=== PATIENT | male | born 1940 | race Hispanic/Latino ===

== ENCOUNTER 2020-10-05 18:51 | Observation (INO) | payer OTHER ==
[2020-10-05 20:53] LABS: Absolute Lymphocytes (CBC) 0.8 K/uL (0.7-4.9); Basophils % 0.6 % (0-1.3); Hematocrit 47.4 % (39.6-49.0); Lymphocytes % 10.8 % (15.3-44.8); MPV 9.1 fL (7.6-11.3); RBC Red Blood Cell Count 5.11 M/uL (4.33-5.43)
[2020-10-05 20:54] LABS: Protime INR 1.08
[2020-10-05 21:07] LABS: ALT/SGPT 253 U/L (12-78); AST/SGOT 250 U/L (15-37); Albumin 3.3 g/dL (3.4-5.0); Alkaline Phosphatase 62 U/L (45-117); BUN Blood Urea Nitrogen 25 mg/dL (7-18); Bicarbonate 24 mmol/L (21-32); Bilirubin Direct 0.6 mg/dL (0-0.2); Bilirubin Total 1.1 mg/dL (0.2-1.0); Glucose Level 244 mg/dL (74-106); Magnesium 2.5 mg/dL (1.8-2.4); NT PRO-BNP 36 pg/mL (<450); Potassium 4.7 mmol/L (3.5-5.1); Protein, Total 8.2 g/dL (6.4-8.2); Sodium Level 137 mmol/L (136-145); Troponin (Emerg Dept Use Only) < 0.02 ng/mL (0.0-0.045)
[2020-10-05] MEDS ORDERED: dexAMETHasone 10 MG/ML VIAL ONE (21:47)
[2020-10-05] MEDS ORDERED: ENOXAPARIN 30 MG/0.3 ML SQ ONE (23:06)
[2020-10-05] MEDS ORDERED: ENOXAPARIN 40 MG/0.4 ML SQ ONE (23:07)
[2020-10-05] MEDS ORDERED: NA CHLORIDE 0.9% 500 ML ONE (23:55)
--- NOTE | 2020-10-05 23:55 | EDPHYS ---
Physician Documentation [facility] Name: Surinder Silva Age: 79 yrs Sex: Male : 1940 Arrival Date: 10/05/2020 Time: 18:54 Bed 19 Private MD: ED Physician Geoffrey Robles HPI: 10/05 20:53 This 79 yrs old Male presents to ER via EMS with complaints of Fall Injury. jmm 20:53 Onset: The symptoms/episode began/occurred acutely, at an unknown time. Associated [facility] injuries: The patient sustained no obvious injury. This is a 79 year old male with a history of DM, that presents to the ED with no complaints of pain or shortness of breath. Patient recently diagnosed with COVID. Family states the patient had collapsed and was found on the floor. Patient has no recollection of the event. . 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 - Social history:: Smoking status: . ROS: 20:53 Constitutional: Negative for fever, chills, and weight loss, Cardiovascular: Negative jmm for chest pain, palpitations, and edema, Respiratory: Negative for shortness of breath, cough, wheezing, and pleuritic chest pain. 20:53 Neuro: Positive for syncope. 20:53 All other systems are negative. Exam: 20:53 Constitutional: This is a well developed, well nourished patient who is awake, alert, jmm and in no acute distress. Head/Face: atraumatic. Eyes: EOMI, no conjunctival erythema appreciated 20:53 ENT: Moist Mucus Membranes Neck: Trachea midline, Supple Chest/axilla: Normal chest wall appearance and motion. Cardiovascular: Regular rate and rhythm. No edema appreciated Respiratory: Normal respirations, no respiratory distress appreciated Abdomen/GI: Non distended, soft Back: Normal ROM Skin: General appearance color normal MS/ Extremity: Moves all extremities, no obvious deformities appreciated, no edema noted to the lower extremities 20:53 Neuro: Orientation: is normal, Mentation: is normal, Memory: is normal. 20:53 Psych: Behavior/mood is pleasant, cooperative. Vital Signs: 18:54 BP 144 / 73; Pulse 89; Resp 19; Temp 99.6(O); Pulse Ox 95% on R/A; Pain 0/10; tw2 19:00 BP 144 / 73; Pulse 88; Resp 30; Pulse Ox 93% on R/A; jb4 20:00 BP 148 / 65; Pulse 88; Resp 33; Pulse Ox 93% on R/A; jb4 21:10 Resp 30; Pulse Ox 96% on 2.5 lpm NC; jp3 22:50 Weight 74.84 kg (R); Height 5 ft. 2 in. (157.48 cm); jb4 23:00 BP 146 / 84; Pulse 89; Resp 20; Pulse Ox 94% on 2 lpm NC; jb4 10/06 00:00 BP 130 / 71; Pulse 75; Resp 28; Pulse Ox 95% on 2 lpm NC; jb4 10/05 22:50 Body Mass Index 30.18 (74.84 kg, 157.48 cm) jb4 MDM: 10/05 20:03 Patient medically screened. [facility] 23:49 Data reviewed: vital signs, nurses notes. Counseling: I had a detailed discussion with [facility] the patient and/or guardian regarding: the historical points, exam findings, and any diagnostic results supporting the discharge/admit diagnosis, lab results, radiology results, the need for further work-up and treatment in the hospital. ED course: I discussed the patient with Dr. Mildred HERRING, whom accepted the patient to Dr. Espinoza's service. . 10/05 20:10 Order name: Basic Metabolic Panel; Complete Time: 21: [facility] 10/05 20:10 Order name: CBC with Diff; Complete Time: : [facility] 10/05 20:10 Order name: LFT's; Complete Time: : [facility] 10/05 20:10 Order name: Magnesium; Complete Time: 21:22 [facility] 10/05 20:10 Order name: NT PRO-BNP; Complete Time: 21: [facility] 10/05 20:10 Order name: PT-INR; Complete Time: 21: [facility] 10/05 20:10 Order name: Troponin (emerg Dept Use Only); Complete Time: 21:22 [facility] 10/05 20:11 Order name: Urine Culture [facility] 10/05 20:11 Order name: Procalcitonin; Complete Time: 21:22 [facility] 10/05 20:11 Order name: Lactate; Complete Time: 21:22 [facility] 10/05 20:11 Order name: Blood Culture Adult (2) [facility] 10/05 20:48 Order name: Glucose, Ancillary Testing; Complete Time: 21:22 [facility] 10/05 21:28 Order name: D-Dimer; Complete Time: 21:42 [facility] 10/05 20:10 Order name: XRAY Chest (1 view) [facility] 10/05 20:10 Order name: EKG; Complete Time: 20:11 [facility] 10/05 20:10 Order name: Cardiac monitoring; Complete Time: 20:52 [facility] 10/05 20:10 Order name: EKG - Nurse/Tech; Complete Time: 20:52 [facility] 10/05 20:10 Order name: IV Saline Lock; Complete Time: 20:40 [facility] 10/05 20:10 Order name: Labs collected and sent; Complete Time: 20:40 [facility] 10/05 20:10 Order name: O2 Per Protocol; Complete Time: 20:40 [facility] 10/05 21:23 Order name: CT Head Brain wo Cont [facility] 10/05 21:41 Order name: CT Chest For PE Angio [facility] 10/05 22:37 Order name: CRP [facility] 10/05 22:38 Order name: C-Reactive Protein; Complete Time: 23:34 [facility] 10/05 23:42 Order name: Lactate Sepsis 2 HR Follow-up; Complete Time: 23:54 [facility] 10/05 23:54 Order name: CONS Physician Consult [facility] 10/05 20:10 Order name: O2 Sat Monitoring; Complete Time: 20:40 [facility] Administered Medications: 21:30 Drug: Decadron - Dexamethasone 10 mg Route: IVP; Site: right antecubital; jb4 22:00 Follow up: Response: No adverse reaction jb4 23:03 Drug: Lovenox 1 mg/kg Route: Sub-Q; Site: right lower abdomen; jb4 23:38 Follow up: Response: No adverse reaction jb4 23:50 Drug: NS 0.9% 500 ml Route: IV; Rate: bolus; Site: right antecubital; [facility] 10/06 00:53 Follow up: Response: No adverse reaction; IV Status: Infusion continued upon admission jb4 Disposition: 06:31 Co-signature as Attending Physician, Geoffrey Robles MD. mh7 Disposition: 10/05/20 23:53 Hospitalization ordered by Yesi Espinoza for Inpatient Admission. Preliminary diagnosis are Syncope and collapse, Dehydration, Hypoxia, Covid 19 Viral Pneumonia. - Bed requested for Intensive Care Unit. - Status is Inpatient Admission. jb4 - Condition is Stable. - Problem is new. - Symptoms are unchanged. Signatures: Dispatcher [employer] [facility] Rebecca Cunningham RN RN Nikunj Redd PA PA [facility] Santos Levy PA PA jr8 Jeni Mcgrath RN RN tw2 Jt Johnson RN RN jb4 Geoffrey Robles MD MD mh7 Corrections: (The following items were deleted from the chart) 10/05 21:28 21:23 D-DIMER+COAG.LAB.BRZ ordered. [facility] 10/06 00:00 10/05 23:53 Hospitalization Ordered by Yesi Espinoza MD for Inpatient Admission. Preliminary diagnosis is Syncope and collapse; Dehydration; Hypoxia; Covid 19 Viral Pneumonia. Bed requested for Telemetry/MedSurg (Inpatient). Status is Inpatient Admission. Condition is Stable. Problem is new. Symptoms are unchanged. [facility] 10/06 00:54 00:00 10/05/2020 23:53 Hospitalization Ordered by Yesi Espinoza MD for Inpatient jb4 Admission. Preliminary diagnosis is Syncope and collapse; Dehydration; Hypoxia; Covid 19 Viral Pneumonia. Bed requested for Intensive Care Unit. Status is Inpatient Admission. Condition is Stable. Problem is new. Symptoms are unchanged.
--- NOTE | 2020-10-05 23:55 | ER ---
Nurse's Notes [facility] Name: Surinder Silva Age: 79 yrs Sex: Male : 1940 Arrival Date: 10/05/2020 Time: 18:54 Bed 19 Private MD: Diagnosis: Syncope and collapse;Dehydration;Hypoxia;Covid 19 Viral Pneumonia Presentation: 10/05 18:54 Chief complaint: EMS states: pt from home, had an unwitnessed fall at an unknown time tw2 today, family called him and couldn't get him on the phone, they went to check on him this afternoon, he had defecated himself and they noted dark yellow urine, he is COVID +, got his results today and was tested on Thursday, vs stable, BGL 233, Hx: DM. Coronavirus screen: Client presents with at least one sign or symptom that may indicate coronavirus-19. Standard/surgical mask placed on the client. Provider contacted for isolation considerations. Ebola Screen: Patient denies travel to an Ebola-affected area in the 21 days before illness onset. Initial Sepsis Screen: Does the patient meet any 2 criteria? No. Patient's initial sepsis screen is negative. Initial Sepsis Screen: Does the patient have a suspected source of infection? No. Patient's initial sepsis screen is negative. Risk Assessment: Do you want to hurt yourself or someone else? Patient reports no desire to harm self or others. Onset of symptoms was October 05, 2020. 18:54 Method Of Arrival: EMS: [facility] tw2 18:54 Acuity: DEEPTI 3 tw2 Triage Assessment: 18:54 General: Appears in no apparent distress. well groomed, Behavior is calm, cooperative, tw2 appropriate for age. Pain: Denies pain. 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 - Social history:: Smoking status: . Screenin:05 Abuse screen: Denies threats or abuse. Nutritional screening: No deficits noted. tw2 Tuberculosis screening: No symptoms or risk factors identified. Fall Risk Secondary diagnosis (15 points) impaired mobility. Assessment: 19:00 General: Appears in no apparent distress. comfortable, Behavior is calm, cooperative, jb4 appropriate for age. Pain: Denies pain. Neuro: Oriented to person, place, time, situation. Cardiovascular: Patient's skin is warm and dry. Respiratory: Airway is patent Respiratory effort is even, unlabored, Respiratory pattern is symmetrical, tachypnea. GI: No signs and/or symptoms were reported involving the gastrointestinal system. : No signs and/or symptoms were reported regarding the genitourinary system. EENT: No signs and/or symptoms were reported regarding the EENT system. Derm: Skin is intact, Skin is pink, warm \T\ dry. Musculoskeletal: Circulation, motion, and sensation intact. Range of motion: intact in all extremities. 20:00 Reassessment: Patient appears in no apparent distress at this time. Patient and/or jb4 family updated on plan of care and expected duration. Pain level reassessed. Patient is alert, oriented x 3, equal unlabored respirations, skin warm/dry/pink. 21:00 Reassessment: Patient appears in no apparent distress at this time. Patient and/or jb4 family updated on plan of care and expected duration. Pain level reassessed. Patient is alert, oriented x 3, equal unlabored respirations, skin warm/dry/pink. 22:00 Reassessment: Patient appears in no apparent distress at this time. Patient and/or jb4 family updated on plan of care and expected duration. Pain level reassessed. Patient is alert, oriented x 3, equal unlabored respirations, skin warm/dry/pink. 23:00 Reassessment: Patient appears in no apparent distress at this time. Patient and/or jb4 family updated on plan of care and expected duration. Pain level reassessed. Patient is alert, oriented x 3, equal unlabored respirations, skin warm/dry/pink. 23:30 Reassessment: Patient appears in no apparent distress at this time. Patient and/or jb4 family updated on plan of care and expected duration. Pain level reassessed. Patient is alert, oriented x 3, equal unlabored respirations, skin warm/dry/pink. PT assisted with changing into a gown and cleaned. Bed linens cleaned, soiled personal belongings placed in a belongings bag and put at the bedside. 10/06 00:05 Reassessment: Pt was tested at [facility]. Pt's family states that they attempted to dm5 get the results through the [facility] portal but it didn't have the patient's name on the page. 01:53 Reassessment: ICU nurse called reporting that the pt was complaining of his cell phone jb4 missing. Pt's room searched, linen bag found, linen searched, no cell phone found in dirty linen. Vital Signs: 10/05 18:54 BP 144 / 73; Pulse 89; Resp 19; Temp 99.6(O); Pulse Ox 95% on R/A; Pain 0/10; tw2 19:00 BP 144 / 73; Pulse 88; Resp 30; Pulse Ox 93% on R/A; jb4 20:00 BP 148 / 65; Pulse 88; Resp 33; Pulse Ox 93% on R/A; jb4 21:10 Resp 30; Pulse Ox 96% on 2.5 lpm NC; jp3 22:50 Weight 74.84 kg (R); Height 5 ft. 2 in. (157.48 cm); jb4 23:00 BP 146 / 84; Pulse 89; Resp 20; Pulse Ox 94% on 2 lpm NC; jb4 10/06 00:00 BP 130 / 71; Pulse 75; Resp 28; Pulse Ox 95% on 2 lpm NC; jb4 10/05 22:50 Body Mass Index 30.18 (74.84 kg, 157.48 cm) jb4 ED Course: 10/05 18:54 Patient arrived in ED. tw2 18:54 Bed in low position. Call light in reach. Side rails up X 1. tw2 19:00 Geoffrey Robles MD is Attending Physician. mh7 19:00 Report given to TETE Melchor. tw2 19:03 Triage completed. tw2 19:03 Arm band placed on. tw2 19:58 Jt Johnson, TETE is Primary Nurse. jb4 20:02 pt son-in-law Kory Blackman [phone]. mw2 20:03 Nikunj Redd PA is PHCP. [facility] 20:30 Initial lab(s) drawn, by me, sent to lab. Inserted saline lock: 20 gauge in right jb4 antecubital area, using aseptic technique. Blood collected. 21:05 First set of blood cultures drawn by me. jp3 21:10 Head of bed elevated. jp3 21:16 Second set of blood cultures drawn by me. Oxygen administration via nasal cannula jp3 2.5L/min. 21:30 XRAY Chest (1 view) In Process Unspecified. EDMS 21:44 CT Head Brain wo Cont In Process Unspecified. EDMS 22:27 CT Chest For PE Angio In Process Unspecified. EDMS 22:39 [place] ID # [id number] spoke to Kyree Wyatt 2 23:52 Yesi Espinoza MD is Hospitalizing Provider. [facility] 10/06 00:54 No provider procedures requiring assistance completed. Patient admitted, IV remains in jb4 place. Administered Medications: 10/05 21:30 Drug: Decadron - Dexamethasone 10 mg Route: IVP; Site: right antecubital; [facility] 22:00 Follow up: Response: No adverse reaction [facility] 23:03 Drug: Lovenox 1 mg/kg Route: Sub-Q; Site: right lower abdomen; jb 23:38 Follow up: Response: No adverse reaction [facility] 23:50 Drug: NS 0.9% 500 ml Route: IV; Rate: bolus; Site: right antecubital; [facility] 10/06 00:53 Follow up: Response: No adverse reaction; IV Status: Infusion continued upon admission [facility] Outcome: 10/05 23:53 Decision to Hospitalize by Provider. [facility] 10/06 00:54 Admitted to ICU accompanied by tech, via stretcher, room 1, with oxygen, Report called jb to TETE Hein Condition: stable Discharge instructions given to patient, Instructed on the need for admit, Demonstrated understanding of instructions. 00:54 Patient left the ED. [facility] Signatures: Dispatcher [employer] Eladia Shaw, RN RN dm5 Nikunj Redd PA PA [facility] Jeni Mcgrath, TETE RN tw2 Jt Johnson RN RN [facility] Eitan Espinosa mw2 Jonatan Mcneil jp3 Geoffrey Robles MD MD 7 Corrections: (The following items were deleted from the chart) 00:08 00:00 BP 130 / 71; Pulse 75bpm; Resp 30bpm; Pulse Ox 95% 2 lpm Nasal Cannula; jb4 jb4
[2020-10-06] MEDS ORDERED: D50W 25 GM/50 ML SYRINGE IV PRN (00:35)
[2020-10-06] MEDS ORDERED: GLUCAGON 1 MG/VIAL IM PRN (00:35)
[2020-10-06] MEDS ORDERED: ONDANSETRON 4 MG/2 ML VIAL IV PRN (00:35)
[2020-10-06] MEDS ORDERED: ACETAMINOPHEN 500 MG TAB PO PRN (00:35)
[2020-10-06] MEDS ORDERED: NA CHLORIDE 0.9% 1,000 ML IV SCH (01:00)
[2020-10-06 01:54] VITALS: BMI 31.1
--- NOTE | 2020-10-06 02:35 | P.HP ---
Certification for Inpatient Patient admitted to: Inpatient With expected LOS: >2 Midnights Patient will require the following post-hospital care: None Practitioner: I am a practitioner with admitting privileges, knowledge of patient current condition, hospital course, and medical plan of care. Services: Services provided to patient in accordance with Admission requirements found in Title 42 Section 412.3 of the Code of Federal Regulations <Zakia Levyshua - Last Filed: 10/06/20 02:30> Patient History Date of Service: 10/06/20 Primary Care Provider: GETACHEW Reason for admission: Hypoxia, COVID Pneumonia, COVID 19, Syncope History of Present Illness: This is a 79-year-old male with a history of insulin dependent diabetes mellitus, hypercholesterolemia. Patient presented to the emergency room after EMS was called out by family after not being able to get a hold of patient. Family stated that they had found patient on the floor unresponsive. Patient does not recall this but thought he had fallen. Patient was recently diagnosed with covid and was given results today. Patient was worked up in the emergency room and found to be mildly hypoxic with tachypnea. Labs and imaging were obtained as patient had an elevated D-dimer. Chest x-ray showed bilateral pulmonary a [place]. CT PE without acute pulmonary embolism but did have ground-glass opacities bilaterally consistent with coverage viral pneumonia. Patient currently on oxygen via nasal cannula but maintaining except low oxygen saturation at this time. Due to the coated with respiratory distress and syncope, hospitalist team was consulted for admission. Home medications list reviewed: Yes - Past Medical/Surgical History Has patient received pneumonia vaccine in the past: Yes Diabetic: Yes -: IDDM -: Covid + -: hyperlipidemia - Social History Smoking Status: Never smoker Smoking therapy provided: No Alcohol use: Yes CD- Drugs: No Caffeine use: Yes Place of Residence: Home <Claudio Levy - Last Filed: 10/06/20 02:30> Date of Service: 10/05/20 <Yesi Espinoza - Last Filed: 10/09/20 03:13> Allergies No Known Allergies Allergy (Verified 10/06/20 00:35) Home Medications: Apixaban [Eliquis] 5 mg PO BID #20 tablet 10/06/20 Aspirin Chewable [Aspirin Chewable*] 1 tab PO DAILY 10/06/20 Calcium Carbonate [Calcium] 1 tab PO DAILY 10/06/20 Insulin Aspart [Novolog] 30 unit SQ TIDWM 10/06/20 Insulin Glargine,Hum.rec.anlog [Lantus Solostar] 40 unit SQ BID 10/06/20 Menthol/Camphor [Biofreeze with Ilex Gel] 1 appl TOP PRN PRN 10/06/20 Metformin HCl 1 tab PO BID 10/06/20 lisinopriL [Lisinopril] 1 tab PO DAILY 10/06/20 predniSONE [Prednisone*] 20 mg PO BID #21 tab 10/06/20 Review of Systems General: Weakness Eyes: Unremarkable ENT: Unremarkable Respiratory: Shortness of Breath, SOB with Excertion Cardiovascular: Unremarkable Gastrointestinal: Unremarkable Musculoskeletal: Unremarkable Integumentary: Unremarkable Neurological: As per HPI Lymphatics: Unremarkable <Claudio Levy - Last Filed: 10/06/20 02:30> Physical Examination - Vital Signs Temperature: 99.6 F Blood Pressure: 144/73 Pulse: 89 Respirations: 30 Pulse Ox (%): 92 (Room air) - Physical Exam General: Alert, In no apparent distress, Oriented x3 HEENT: Normocephalic, PERRLA, Mucous membr. moist/pink, EOMI Neck: Supple, 2+ carotid pulse no bruit, JVD not distended, No Thyromegaly Respiratory: Clear to auscultation bilaterally, Normal air movement, Other (Tachypnea present) Cardiovascular: No edema, Normal pulses, Regular rate/rhythm, Normal S1 S2, No gallops, No rubs, No murmurs Capillary refill: <2 Seconds Gastrointestinal: Normal bowel sounds, Soft and benign, Non-distended, No ascites, No tenderness, No masses, No rebound, No guarding Musculoskeletal: No clubbing, No swelling, No contractures, No erythema, No tenderness, No warmth Integumentary: No rashes, No breakdown, No significant lesion, No tenderness/swelling, No erythema, No warmth, No cyanosis Neurological: Normal speech, Normal strength at 5/5 x4 extr, Normal tone, Sensation intact, Cranial nerves 3-12 intact, Normal affect Lymphatics: No axilla or inguinal lymphadenopathy - Studies Laboratory Data (last 24 hrs) 10/05/20 20:30: PT 12.7 H, INR 1.08 10/05/20 20:30: WBC 7.2, Hgb 16.4, Hct 47.4, Plt Count 191 10/05/20 20:30: Sodium 137, Potassium 4.7, BUN 25 H, Creatinine 1.33 H, Glucose 244 H, Magnesium 2.5 H, Total Bilirubin 1.1 H, AST 250 H, ALT 253 H, Alkaline Phosphatase 62 <Claudio Levy - Last Filed: 10/06/20 02:30> Assessment and Plan - Problems (Diagnosis) (1) Insulin dependent diabetes mellitus Status: Chronic (2) COVID-19 Status: Acute (3) Viral pneumonia Status: Acute (4) Hypoxia Status: Acute (5) Syncope and collapse Status: Acute - Plan Patient overall doing well in the emergency room. Patient will be admitted in the inpatient setting and will continue to have oxygen therapy and will upgrade if need be, based on oxygen patient and respiratory demand. Patient be given steroids and will prophylactically be therapeutically anticoagulated for hypercoagulable state secondary to covid 19. We will continue to monitor patient for hemodynamic stability. Patient's glucose will be monitored and will be put on sliding scale and adjusted as needed for elevation in glucose. Dr. Lombardi has been consulted as well. Patient did have mild elevation and lactate level probably secondary to come by and mild dehydration and hypoxia. Will lightly hydrate patient as well and monitor lactate levels. Labs will be rechecked in the morning and CRP level will be trended. Discharge Plan: Home Plan to discharge in: Greater than 2 days - Advance Directives Does patient have a Living Will: No Does patient have a Durable POA for Healthcare: No Critical Care: No Time Spent Managing Pts Care (In Minutes): 70 <Claudio Levy - Last Filed: 10/06/20 02:30> Date of Service: 10/05/20 Agree with findings as mentioned above. Patient clinically is doing well.Anticipate discharge later today if pulmonary is agreeable <Yesi Espinoza - Last Filed: 10/09/20 03:13>
[2020-10-06 05:15] LABS: Absolute Lymphocytes (CBC) 0.7 K/uL (0.7-4.9); Basophils % 0.3 % (0-1.3); Hematocrit 43.8 % (39.6-49.0); Lymphocytes % 12.9 % (15.3-44.8); MPV 9.7 fL (7.6-11.3); RBC Red Blood Cell Count 4.66 M/uL (4.33-5.43)
[2020-10-06 05:26] LABS: Potassium 4.6 mmol/L (3.5-5.1)
[2020-10-06] MEDS: INSULIN -REGULAR HUMAN 50 UNIT/0.5 ML ML SQ SCH ×2 (08:11→11:23)
--- NOTE | 2020-10-06 08:30 | RAD REPORT ---
EXAM DESCRIPTION: Jeffrey Single View10/05/2020 9:30 pm CLINICAL HISTORY: Chest pain COMPARISON: none FINDINGS: Moderate left and [id number] right patchy lung opacities Heart is borderline enlarged IMPRESSION: Moderate left and [id number] right patchy lung opacities probably pneumonia
[2020-10-06] MEDS ORDERED: METHYLPREDNISOLONE 125 MG INJ IV SCH (09:00)
[2020-10-06] MEDS ORDERED: APIXABAN 5 MG TABLET PO SCH (09:00)
[2020-10-06 09:36] VITALS: BP 101/59
--- NOTE | 2020-10-06 09:53 | P.CNS ---
Date of Consult: 10/06/20 Primary Care Provider: GETACHEW Chief Complaint: Hypoxia, COVID Pneumonia, COVID 19, Syncope History of Present Illness: Patient is 79 years of age with diabetes in hyperlipidemia the to the emergency room was found on the floor unresponsive diagnosis with hatch virus pneumonia he is doing much better on nasal cannula oxygen no new complaints 1 some eyedrops Allergies No Known Allergies Allergy (Verified 10/06/20 00:35) Home Medications: Aspirin Chewable [Aspirin Chewable*] 1 tab PO DAILY 10/06/20 Calcium Carbonate [Calcium] 1 tab PO DAILY 10/06/20 Ibuprofen 1 tab PO Q6H PRN 10/06/20 Insulin Aspart [Novolog] 30 unit SQ TIDWM 10/06/20 Insulin Glargine,Hum.rec.anlog [Lantus Solostar] 40 unit SQ BID 10/06/20 Menthol/Camphor [Biofreeze with Ilex Gel] 1 appl TOP PRN PRN 10/06/20 Metformin HCl 1 tab PO BID 10/06/20 lisinopriL [Lisinopril] 1 tab PO DAILY 10/06/20 - Past Medical/Surgical History Diabetic: Yes -: IDDM -: Covid + -: hyperlipidemia - Social History Alcohol use: Yes CD- Drugs: No Caffeine use: Yes Place of Residence: Home Review of Systems 10-point ROS is otherwise unremarkable General: Weakness Respiratory: Shortness of Breath Physical Examination Temp Pulse Resp BP Pulse Ox 97.1 F 60 22 H 101/59 L 96 10/06/20 08:00 10/06/20 08:00 10/06/20 08:00 10/06/20 08:00 10/06/20 08:00 General: Alert, Oriented x3 Respiratory: Clear to auscultation bilaterally Cardiovascular: No edema, Normal S1 S2 Gastrointestinal: Normal bowel sounds, Soft and benign Laboratory Data (last 24 hrs) 10/05/20 20:30: PT 12.7 H, INR 1.08 10/05/20 20:30: WBC 7.2, Hgb 16.4, Hct 47.4, Plt Count 191 10/05/20 20:30: Sodium 137, Potassium 4.7, BUN 25 H, Creatinine 1.33 H, Glucose 244 H, Magnesium 2.5 H, Total Bilirubin 1.1 H, AST 250 H, ALT 253 H, Alkaline Phosphatase 62 - Problems (1) Pneumonia due to 2019 novel coronavirus Current Visit: Yes Status: Acute Plan: Patient is 79 years of age with a history of diabetes admitted with a syncopal attack and was found to have pneumonia due to hatch virus is currently doing much better he is more alert responsive cooperative CT scan of the head was nondiagnostic plan to set him up with some oxygen if he qualifies change to p.o. prednisone at anti coagulated for discharge in 2 weeks prednisone 20 mg twice a day for 2 weeks then 10 twice a day
[2020-10-06 11:17] VITALS: O2SAT 93
--- NOTE | 2020-10-06 11:51 | P.DS ---
Discharge Date: 10/06/20 Primary Care Provider: GETACHEW Disposition: ROUTINE DISCHARGE Discharge Condition: GOOD Reason for Admission: Hypoxia, COVID Pneumonia, COVID 19, Syncope Brief History of Present Illness: This is a 79-year-old male with a history of insulin dependent diabetes mellitus, hypercholesterolemia. Patient presented to the emergency room after EMS was called out by family after not being able to get a hold of patient. Family stated that they had found patient on the floor unresponsive. Patient does not recall this but thought he had fallen. Patient was recently diagnosed with covid and was given results today. Patient was worked up in the emergency room and found to be mildly hypoxic with tachypnea. Labs and imaging were obtained as patient had an elevated D-dimer. Chest x-ray showed bilateral pulmonary a paced [place]. CT PE without acute pulmonary embolism but did have ground-glass opacities bilaterally consistent with coverage viral pneumonia. Patient currently on oxygen via nasal cannula but maintaining except low oxygen saturation at this time. Due to the coated with respiratory distress and syncope, hospitalist team was consulted for admission. Hospital Course: Patient did well during hospital stay. Patient is stable for discharge home. Patient will get home oxygen. Return to the Emergency room if symptoms worsen. Vital Signs/Physical Exam: Temp Pulse Resp BP Pulse Ox 97.1 F 60 22 H 101/59 L 96 10/06/20 08:00 10/06/20 08:00 10/06/20 08:00 10/06/20 08:00 10/06/20 08:00 General: Alert, In no apparent distress, Oriented x3 Laboratory Data at Discharge: WBC 5.4 K/uL (4.3-10.9) D 10/06/20 04:41 Hgb 14.9 g/dL (13.6-17.9) 10/06/20 04:41 Hct 43.8 % (39.6-49.0) 10/06/20 04:41 Plt Count 196 K/uL (152-406) 10/06/20 04:41 PT 12.7 SECONDS (9.5-12.5) H 10/05/20 20:30 INR 1.08 10/05/20 20:30 Sodium 137 mmol/L (136-145) 10/06/20 04:41 Potassium 4.6 mmol/L (3.5-5.1) 10/06/20 04:41 BUN 26 mg/dL (7-18) H 10/06/20 04:41 Creatinine 1.17 mg/dL (0.55-1.3) 10/06/20 04:41 Glucose 288 mg/dL (74-106) H 10/06/20 04:41 Magnesium 2.5 mg/dL (1.8-2.4) H 10/05/20 20:30 Total Bilirubin 1.1 mg/dL (0.2-1.0) H 10/05/20 20:30 AST 250 U/L (15-37) H 10/05/20 20:30 ALT 253 U/L (12-78) H 10/05/20 20:30 Alkaline Phosphatase 62 U/L (45-117) 10/05/20 20:30 Home Medications: Apixaban [Eliquis] 5 mg PO BID #20 tablet 10/06/20 Aspirin Chewable [Aspirin Chewable*] 1 tab PO DAILY 10/06/20 Calcium Carbonate [Calcium] 1 tab PO DAILY 10/06/20 Insulin Aspart [Novolog] 30 unit SQ TIDWM 10/06/20 Insulin Glargine,Hum.rec.anlog [Lantus Solostar] 40 unit SQ BID 10/06/20 Menthol/Camphor [Biofreeze with Ilex Gel] 1 appl TOP PRN PRN 10/06/20 Metformin HCl 1 tab PO BID 10/06/20 lisinopriL [Lisinopril] 1 tab PO DAILY 10/06/20 predniSONE [Prednisone*] 20 mg PO BID #21 tab 10/06/20 New Medications: Apixaban [Eliquis] 5 mg PO BID #20 tablet predniSONE [Prednisone*] 20 mg PO BID #21 tab Patient Discharge Instructions: OK TO DC IV AND DC HOME. FOLLOW-UP WITH PRIMARY CARE PROVIDER IN 1-2 WEEKS. FOLLOW-UP WITH Pulmonary IN 1-2 WEEKS. RETURN TO THE ER IF symptoms worsen. CALL or TEXT DR. BROWN AT [phone] IF ANY QUESTIONS REGARDING HOSPITAL STAY. PLEASE CALL THE FLOOR AT [phone] IF ANY MEDICATION OR NURSING QUESTIONS. Diet: AHA Activity: Fall precautions Followup: Juan Manuel Lombardi MD [ACTIVE - CAN ADMIT] - Unknown,U [Primary Care Provider] - Time spent managing pt's care (in minutes): 25
[2020-10-06 13:03] VITALS: TEMP 97.4
[2020-10-06] MEDS ORDERED: predniSONE 20 MG TAB PO SCH (21:00)
--- NOTE | 2020-10-08 11:18 | RAD REPORT ---
EXAM DESCRIPTION: CT - Chest For Pe Angio - 10/06/2020 7:10 am CLINICAL HISTORY: Shortness of breath. COMPARISON: None. TECHNIQUE: CT angiogram of the chest with IV contrast. 3-D MIP images were obtained in coronal and s agittal reconstructions. This exam was performed according to our departmental dose-optimization prog danyn, which includes automated exposure control, adjustment of the mA and/or kV according to patient s ize and/or use of iterative reconstruction technique. FINDINGS: No filling defects are identified in the pulmonary trunk, main left and right pulmonary ar teries, or the segmental branches. There are multiple patchy groundglass opacities scattered throughout both lungs in a predominantly pe ripheral distribution. No pleural effusions or pneumothorax. Normal heart size without pericardial effusion. No mediastinal adenopathy is seen. The visualized por tions of the upper abdomen are unremarkable. The bony thorax is intact. IMPRESSION: 1. No acute pulmonary embolism. 2. Commonly reported imaging features of viral pneumonia such as Covid are present. Other processes such as influenza pneumonia and organizing pneumonia, as can be seen with drug toxicity and connecti ve tissue disease, can cause a similar imaging pattern. PneTyp Reference: https://pubs.[facility]na.org/doi/full/10.1148/ryct.[email or web address] Electronically signed by: Yogi Whiteside MD 10/05/2020 10:46 PM TRACTOR SWEEPER DRIVER Due to temporary technical issues with the PACS/Fluency reporting system, reports are being signed by the in house radiologist without review as a courtesy to ensure prompt reporting. The interpreting r adiologist is fully responsible for the content of the report.
--- NOTE | 2020-10-08 11:19 | RAD REPORT ---
EXAM DESCRIPTION: CT - Head Brain Wo Cont - 10/06/2020 7:10 am CLINICAL HISTORY: 79 years Male SYNCOPE COMPARISON: None TECHNIQUE: Images were obtained in axial, sagittal, and coronal planes. This exam was performed according to our departmental dose-optimization program which includes use of Automated Exposure Control, adjustment of the mA and/or kV according to patient size and/or use o f iterative reconstruction technique. FINDINGS: Ventricular system appears normal. No abnormal areas of increased attenuation seen. No extra-axial fluid collections noted. No evidence for skull fracture. Sclerotic changes mastoid air cells bilaterally. Unremarkable paranas al sinuses. Scalp soft tissue swelling with hematoma posteriorly on the right. IMPRESSION: No acute intracranial abnormality. No evidence for hemorrhage, mass lesion, or large acu te infarction. Electronically signed by: Violet Bush MD 10/05/2020 10:04 PM RAIL SIGNAL DESIGNER Due to temporary technical issues with the PACS/Fluency reporting system, reports are being signed by the in house radiologist without review as a courtesy to ensure prompt reporting. The interpreting r adiologist is fully responsible for the content of the report.
== END 2020-10-06 13:00 | disposition home or self-care (01) ==
LOC: ER 18:51 → ERHOLD 23:57 → INTOOBSV 23:57 → 3RD-ICU 10-06 00:32
PROVIDERS: ADMIT Hospitalist; ATTEND Hospitalist
DX: U07.1 COVID-19 (principal); J12.89 Other viral pneumonia; R09.02 Hypoxemia; R55 Syncope and collapse; E11.9 Type 2 diabetes mellitus without complications; Z79.4 Long term (current) use of insulin; E78.5 Hyperlipidemia, unspecified; E86.0 Dehydration; R94.31 Abnormal electrocardiogram [ECG] [EKG]
CPT/HCPCS: 96361; 93005; 87040 ×2; 85025 ×2; 80048 ×2; 36415; 83735; 85610; 82947 ×3; 85379; 80076; 83605 ×2; 84484; 84145; 83880 ×2; 86140 ×2; 70450; 71275; 71045; 94760 ×2; 96372; 96374; 99285; Q9967; J1650 ×2; J1100; J7040; J7030; J2930; G0378 ×2